=== PATIENT | male | born 1975 | race African-American/Black ===

== ENCOUNTER → 2025-03-17 | Outpatient (CLI) | payer BC ==
--- NOTE | 2025-03-17 10:02 | HMCIMG ---
DOUBLE CONTRAST UPPER GI SERIES: CLINICAL HISTORY: Heartburn/dysphagia. Status post bariatric surgery Finding: The study was performed using provocative maneuvers After swallowing effervescent crystal and thick barium, there is no definite intrinsic or extrinsic lesion seen in the esophagus. There is a small hiatal hernia with grade 2 esophageal reflux. The stomach gastric bypass surgery.. The rugal folds appear to be normal. The duodenal bulb, duodenal sweep, and upper jejunum appear to be normal. Fluoroscopy time: 1.4 minutes . IMPRESSION: Status post gastric bypass surgery with patent anastomosis. small hiatal hernia with grade 2 esophageal reflux
== END | disposition home or self-care (01) ==
LOC: RAH 08:37
PROVIDERS: ATTEND Internal Medicine
DX: K44.9 Diaphragmatic hernia without obstruction or gangrene (principal); K21.9 Gastro-esophageal reflux disease without esophagitis; K63.89 Other specified diseases of intestine; R12 Heartburn; R13.10 Dysphagia, unspecified; Z98.84 Bariatric surgery status
CPT/HCPCS: 74240